=== PATIENT | female | born 1960 | race African-American/Black ===

== ENCOUNTER 2022-07-03 11:50 | Emergency (ER) | payer MEDICARE ==
[2022-07-03 13:02] LABS: ALT (SGPT) 15 U/L (8-55); AST (SGOT) 24 U/L (5-34); Albumin 4.2 g/dL (3.5-5.0); Alkaline Phosphatase 120 U/L (40-110); Anion Gap 14 mmol/L (10-20); BUN (Urea Nitrogen) 25 mg/dL (9.8-20.1); Bilirubin, Total 0.5 mg/dL (0.2-1.2); Calc. Creatinine Clearance 0 mL/min (70-130); Calcium 9.9 mg/dL (7.8-10.44); Carbon Dioxide 26 mmol/L (22-29); Chloride 104 mmol/L (98-107); Estimated GFR 28; Globulin 2.9 g/dL (2.4-3.5); Glucose 200 mg/dL (70-105); Potassium 4.8 mmol/L (3.5-5.1); Protein, Total 7.1 g/dL (6.0-8.3); Sodium 139 mmol/L (136-145)
[2022-07-03 13:23] LABS: #Eosinphils 0.1 10x3/uL (0.0-0.5); #Monocytes 0.4 10x3/uL (0.0-1.1); #Neutrophils 4.6 10x3/uL (1.5-8.4); %Basophils 0.3 % (0.0-2.0); %Eosinophils 1.5 % (0.0-6.0); %Lymphocytes 27.8 % (18.0-47.0); %Monocytes 6.2 % (0.0-10.0); %Neutrophils 63.9 % (40.0-75.0); Mean Corpuscular HGB CONC 32.6 g/dL (32.0-36.0); Mean Corpuscular Hemoglobin 27.2 pg (27.0-33.0); Mean Corpuscular Volume 83.2 fl (81.6-98.3); Mean Platelet Volume 11.6 fl (7.4-10.4); Platelet Count 193 10x3/uL (150-450); RBC Distribution Width 14.2 % (11.5-14.5); Red Blood Cell (RBC) Count 4.05 10x6/uL (3.90-5.03); White Blood Cell (WBC) Count 7.2 10x3/uL (3.5-10.5)
[2022-07-03 14:19] LABS: Large Platelets SLIGHT; Platelet Clumps MODERATE; Platelet Morphology Comment Appears Adequate
[2022-07-03 14:21] LABS: RBC Morphology Normal
== END 2022-07-03 15:00 | disposition home or self-care (01) ==
LOC: CSHERS 11:50
DX: S43.421A Sprain of right rotator cuff capsule, initial encounter (principal); K21.9 Gastro-esophageal reflux disease without esophagitis; E78.00 Pure hypercholesterolemia, unspecified; I25.10 Atherosclerotic heart disease of native coronary artery without angina pectoris; E11.9 Type 2 diabetes mellitus without complications; Z86.73 Personal history of transient ischemic attack (TIA), and cerebral infarction without residual deficits; W19.XXXA Unspecified fall, initial encounter
CPT/HCPCS: 70450; 80053; 85025; 93005

== ENCOUNTER 2022-11-10 13:54 | Outpatient (CLI) | payer MEDICARE | END 2022-11-10 13:55 | disposition home or self-care (01) | LOC: CSHULT 13:54 | PROVIDERS: ATTEND Nurse Practitioner Family | DX: I83.11 Varicose veins of right lower extremity with inflammation (principal); I83.12 Varicose veins of left lower extremity with inflammation; R22.42 Localized swelling, mass and lump, left lower limb; M79.9 Soft tissue disorder, unspecified | CPT/HCPCS: 76882; 93923; 93970 ==

== ENCOUNTER 2023-11-26 13:29 | Emergency (ER) | payer MEDICARE ==
[2023-11-26 15:41] LABS: #Basophils 0.02 10x3/uL (0.0-0.2); #Eosinphils 0.15 10x3/uL (0.0-0.5); #Monocytes 0.43 10x3/uL (0.0-1.1); #Neutrophils 3.36 10x3/uL (1.5-8.4); %Basophils 0.3 % (0.0-2.0); %Eosinophils 2.2 % (0.0-6.0); %Lymphocytes 41.3 % (18.0-47.0); %Monocytes 6.4 % (0.0-10.0); %Neutrophils 49.7 % (40.0-75.0); Hematocrit 30.1 % (34.9-44.5); Mean Corpuscular HGB CONC 33.2 g/dL (32.0-36.0); Mean Corpuscular Hemoglobin 27.5 pg (27.0-33.0); Mean Corpuscular Volume 82.7 fL (81.6-98.3); Mean Platelet Volume 10.6 fL (7.4-10.4); Platelet Count 203 10x3/uL (150-450); Red Blood Cell (RBC) Count 3.64 10x6/uL (3.90-5.03); White Blood Cell (WBC) Count 6.8 10x3/uL (3.5-10.5)
[2023-11-26 15:49] LABS: ALT (SGPT) 19 U/L (8-55); AST (SGOT) 28 U/L (5-34); Albumin 3.9 g/dL (3.4-4.8); Alkaline Phosphatase 122 U/L (40-110); Anion Gap 12 mmol/L (10-20); BUN (Urea Nitrogen) 22 mg/dL (9.8-20.1); Bilirubin, Total 0.5 mg/dL (0.2-1.2); Calc. Creatinine Clearance 0 mL/min (70-130); Calcium 10.1 mg/dL (7.8-10.44); Carbon Dioxide 22 mmol/L (23-31); Chloride 112 mmol/L (98-107); Estimated GFR 47; Globulin 2.6 g/dL (2.4-3.5); Glucose 142 mg/dL (80-115); Potassium 4.7 mmol/L (3.5-5.1); Protein, Total 6.5 g/dL (5.8-8.1); Sodium 141 mmol/L (136-145)
[2023-11-26 15:57] LABS: Troponin I Less than 0.010 ng/mL (< 0.028)
[2023-11-26 17:35] LABS: Bilirubin Neg (Negative); Blood, Urine Negative (Negative); Clarity Clear (Clear); Glucose, Urine (Dipstick) Normal (Negative); Ketone, Urine Negative (Negative); Leukocyte Negative (Negative); Nitrite Negative (Negative); Protein, Urine (Dipstick) 15 mg/dl (Neg-Trace); Urobilinogen Normal mg/dL (Less than 2); pH, Urine 6.5 (5.0-9.0)
[2023-11-26 17:46] LABS: Bacteria/HPF Rare-Few HPF (None Seen); CAUTI Indications for Culture Alt mental st,lethar; RBC/HPF 0-3 HPF (0-3); Squamous Epithelial 0-3 HPF (0-3); WBC/HPF 0-3 HPF (0-3)
[2023-11-26 17:47] LABS: Urine Culture Reflex No No
== END 2023-11-26 17:38 | disposition home or self-care (01) ==
LOC: CSHERS 13:29
DX: S06.0X0A Concussion without loss of consciousness, initial encounter (principal); E11.9 Type 2 diabetes mellitus without complications; E78.5 Hyperlipidemia, unspecified; Z79.899 Other long term (current) drug therapy; Z79.4 Long term (current) use of insulin; W19.XXXA Unspecified fall, initial encounter
CPT/HCPCS: 36415; 70450; 71045; 80053; 81001; 84484; 85025; 93005

== ENCOUNTER 2025-01-10 16:36 | Emergency (ER) | payer MEDICARE ==
[2025-01-10] MEDS ORDERED: Gabapentin 300 MG CAP ONE (17:23)
== END 2025-01-10 17:40 | disposition home or self-care (01) ==
LOC: CSHERS 16:36
DX: M25.562 Pain in left knee (principal); I25.10 Atherosclerotic heart disease of native coronary artery without angina pectoris; E78.5 Hyperlipidemia, unspecified; E11.9 Type 2 diabetes mellitus without complications; Z86.73 Personal history of transient ischemic attack (TIA), and cerebral infarction without residual deficits; W19.XXXA Unspecified fall, initial encounter
CPT/HCPCS: 99283

== ENCOUNTER 2025-01-23 13:23 | Inpatient (IN) | payer MEDICARE ==
[~2025-01-23 13:23] MED LIST: Iopamidol 370 76% 100 ML VIAL ONE
[2025-01-23 14:01] LABS: #Basophils Less than 0.03 10x3/uL (0.0-0.2); #Eosinophils 0.17 10x3/uL (0.0-0.5); #Monocytes 0.66 10x3/uL (0.0-1.1); #Neutrophils 4.06 10x3/uL (1.5-8.4); %Basophils 0.3 % (0.0-2.0); %Eosinophils 2.6 % (0.0-6.0); %Lymphocytes 24.2 % (18.0-47.0); %Monocytes 10.2 % (0.0-10.0); %Neutrophils 62.5 % (40.0-75.0); Hematocrit 31.9 % (34.9-44.5); Hemoglobin 10.1 g/dL (12.0-15.5); Mean Corpuscular Hemoglobin 27.1 pg (27.0-33.0); Mean Corpuscular Volume 85.5 fL (81.6-98.3); Platelet Count 221 10x3/uL (150-450); Red Blood Cell (RBC) Count 3.73 10x6/uL (3.90-5.03); White Blood Cell (WBC) Count 6.49 10x3/uL (3.5-10.5)
[2025-01-23 14:28] LABS: ALT (SGPT) 13 U/L (Less than 34); AST (SGOT) 23 U/L (11-34); Albumin 3.9 g/dL (3.1-4.5); Alkaline Phosphatase 167 U/L (40-110); Anion Gap 13 mmol/L (10-20); BUN (Urea Nitrogen) 26 mg/dL (9.8-20.1); Bilirubin, Total 0.6 mg/dL (0.3-1.2); Calc. Creatinine Clearance 0 mL/min (70-130); Calcium 11.2 mg/dL (7.8-10.44); Carbon Dioxide 26 mmol/L (23-31); Chloride 105 mmol/L (98-107); Globulin 2.9 g/dL (2.4-3.5); Glucose 181 mg/dL (80-115); Potassium 5.3 mmol/L (3.5-5.1); Sodium 139 mmol/L (136-145)
[2025-01-23 14:34] LABS: Troponin I 0.036 ng/mL (< 0.028)
[2025-01-23] MEDS ORDERED: Furosemide 40 MG (4 mL) VIAL ONE (17:14)
[2025-01-23] MEDS ORDERED: Aspirin Chewable 81 MG TAB ONE (17:14)
[2025-01-23] MEDS ORDERED: Nitroglycerin 0.4 MG TAB (25 Tab Bottle) SL PRN (18:12)
[2025-01-23 18:15] LABS: Troponin I 0.029 ng/mL (< 0.028)
[2025-01-23] MEDS ORDERED: Dextrose 50% Abboject 50 ML SYRINGE SLOW IVP PRN (18:18)
[2025-01-23] MEDS ORDERED: Glucagon 1 MG/ML KIT IM PRN (18:18)
[2025-01-23] MEDS: TICAGRELOR 90 MG TABLET PO SCH (20:55)
[2025-01-24 04:42] LABS: ALT (SGPT) 9 U/L (Less than 34); AST (SGOT) 19 U/L (11-34); Albumin 3.4 g/dL (3.1-4.5); Alkaline Phosphatase 134 U/L (40-110); Anion Gap 14 mmol/L (10-20); BUN (Urea Nitrogen) 27 mg/dL (9.8-20.1); Bilirubin, Total 0.4 mg/dL (0.3-1.2); Calc. Creatinine Clearance 57 mL/min (70-130); Calcium 10.8 mg/dL (7.8-10.44); Carbon Dioxide 22 mmol/L (23-31); Chloride 106 mmol/L (98-107); Globulin 3.2 g/dL (2.4-3.5); Glucose 153 mg/dL (80-115); Potassium 4.4 mmol/L (3.5-5.1); Sodium 138 mmol/L (136-145)
[2025-01-24] MEDS: Aspirin Chewable 81 MG TAB PO SCH (09:50)
[2025-01-24] MEDS: Benzonatate 100 MG CAP PO PRN (09:50)
[2025-01-24] MEDS: Carvedilol 3.125 MG TAB PO SCH (16:39)
[2025-01-24 17:28] LABS: Glucose, Urine (Dipstick) 100 mg/dL (Negative); Leukocyte Negative (Negative); Protein, Urine (Dipstick) 30 mg/dl (Neg-Trace); Specific Gravity, Urine 1.015 (1.005-1.030)
[2025-01-24 17:51] LABS: Bacteria/HPF 3+ HPF (None Seen); RBC/HPF 0-3 HPF (0-3)
[2025-01-24] MEDS ORDERED: Metoprolol Succinate XL 25 MG ER.TAB PO SCH (21:00)
[2025-01-24] MEDS ORDERED: Sacubitril 49 MG/Valsartan 51 MG TABLET PO SCH (21:00)
[2025-01-24] MEDS ORDERED: Metoprolol Succinate XL 50 MG ER.TAB PO SCH (21:00)
[2025-01-24] MEDS: Sertraline 100 MG TAB PO SCH (21:09)
[2025-01-24] MEDS: Multivit, Therapeutic 1 TAB PO SCH (21:09)
[2025-01-25 04:57] LABS: #Basophils Less than 0.03 10x3/uL (0.0-0.2); #Eosinophils 0.22 10x3/uL (0.0-0.5); #Monocytes 0.56 10x3/uL (0.0-1.1); #Neutrophils 2.71 10x3/uL (1.5-8.4); %Basophils 0.2 % (0.0-2.0); %Eosinophils 4.2 % (0.0-6.0); %Lymphocytes 32.2 % (18.0-47.0); %Monocytes 10.8 % (0.0-10.0); %Neutrophils 52.4 % (40.0-75.0); Hematocrit 27.7 % (34.9-44.5); Hemoglobin 8.9 g/dL (12.0-15.5); Mean Corpuscular Hemoglobin 27.8 pg (27.0-33.0); Mean Corpuscular Volume 86.6 fL (81.6-98.3); Platelet Count 176 10x3/uL (150-450); Red Blood Cell (RBC) Count 3.20 10x6/uL (3.90-5.03); White Blood Cell (WBC) Count 5.18 10x3/uL (3.5-10.5)
[2025-01-25 05:13] LABS: Anion Gap 9 mmol/L (10-20); BUN (Urea Nitrogen) 26 mg/dL (9.8-20.1); Calc. Creatinine Clearance 69 mL/min (70-130); Calcium 10.2 mg/dL (7.8-10.44); Carbon Dioxide 25 mmol/L (23-31); Chloride 107 mmol/L (98-107); Glucose 193 mg/dL (80-115); Magnesium 1.6 mg/dL (1.6-2.6); Potassium 4.4 mmol/L (3.5-5.1); Sodium 137 mmol/L (136-145)
[2025-01-25] MEDS: Famotidine 20 MG TAB PO SCH (08:28)
[2025-01-25] MEDS ORDERED: Spironolactone 25 MG TAB PO SCH (09:00)
[2025-01-25] MEDS ORDERED: Furosemide 20 MG TAB PO SCH (10:30)
[2025-01-25] MEDS: Spironolactone 25 MG TAB PO SCH (11:35)
[2025-01-25] MEDS: Furosemide 40 MG TAB PO SCH (11:35)
[2025-01-25] MEDS: cefTRIAXone\\ROCEPHIN 1 GM in Sodium Chloride 0.9% 100 ML IVPB SCH (12:52)
[2025-01-25] MEDS: Sacubitril 49 MG/Valsartan 51 MG TABLET PO SCH (20:34)
[2025-01-26 04:31] LABS: Hematocrit 27.7 % (34.9-44.5); Hemoglobin 9.0 g/dL (12.0-15.5)
[2025-01-26 04:54] LABS: Anion Gap 14 mmol/L (10-20); BUN (Urea Nitrogen) 28 mg/dL (9.8-20.1); Calc. Creatinine Clearance 61 mL/min (70-130); Calcium 10.3 mg/dL (7.8-10.44); Carbon Dioxide 23 mmol/L (23-31); Chloride 104 mmol/L (98-107); Glucose 226 mg/dL (80-115); Potassium 4.2 mmol/L (3.5-5.1); Sodium 137 mmol/L (136-145)
[2025-01-26 06:07] VITALS: BMI 29.2
[2025-01-26] MEDS: Furosemide 40 MG TAB PO SCH (08:14)
[2025-01-26] MEDS: Spironolactone 25 MG TAB PO SCH (08:14)
[2025-01-26 12:35] VITALS: BP 107/69; TEMP 98.4
[2025-01-27] MEDS ORDERED: Furosemide 20 MG TAB PO SCH (07:30)
== END 2025-01-26 13:45 | disposition home or self-care (01) | DRG 291 ==
LOC: CSHERS 13:23 → CSHTELE 17:15 → OBSVTOIN 01-25 10:02
PROVIDERS: ADMIT Internal Medicine; ATTEND Family Medicine
DX: I13.0 Hypertensive heart and chronic kidney disease with heart failure and stage 1 through stage 4 chronic kidney disease, or unspecified chronic kidney disease (principal); I50.43 Acute on chronic combined systolic (congestive) and diastolic (congestive) heart failure; J96.01 Acute respiratory failure with hypoxia; I69.951 Hemiplegia and hemiparesis following unspecified cerebrovascular disease affecting right dominant side; N17.9 Acute kidney failure, unspecified; N30.00 Acute cystitis without hematuria; E87.5 Hyperkalemia; I42.0 Dilated cardiomyopathy; I95.1 Orthostatic hypotension; I25.10 Atherosclerotic heart disease of native coronary artery without angina pectoris; E11.43 Type 2 diabetes mellitus with diabetic autonomic (poly)neuropathy; K31.84 Gastroparesis; F41.9 Anxiety disorder, unspecified; S86.812A Strain of other muscle(s) and tendon(s) at lower leg level, left leg, initial encounter; R05.9 Cough, unspecified; E83.52 Hypercalcemia; E11.22 Type 2 diabetes mellitus with diabetic chronic kidney disease; N18.30 Chronic kidney disease, stage 3 unspecified; K21.9 Gastro-esophageal reflux disease without esophagitis; E66.9 Obesity, unspecified; R79.89 Other specified abnormal findings of blood chemistry; D63.1 Anemia in chronic kidney disease; E78.5 Hyperlipidemia, unspecified; G47.33 Obstructive sleep apnea (adult) (pediatric); I77.9 Disorder of arteries and arterioles, unspecified; B96.20 Unspecified Escherichia coli [E. coli] as the cause of diseases classified elsewhere; I08.1 Rheumatic disorders of both mitral and tricuspid valves; W19.XXXA Unspecified fall, initial encounter; R07.89 Other chest pain; S80.12XA Contusion of left lower leg, initial encounter; Z95.5 Presence of coronary angioplasty implant and graft; Z95.810 Presence of automatic (implantable) cardiac defibrillator; Z88.5 Allergy status to narcotic agent; Z99.89 Dependence on other enabling machines and devices; Z91.011 Allergy to milk products; Z98.890 Other specified postprocedural states; Z90.49 Acquired absence of other specified parts of digestive tract; Z90.710 Acquired absence of both cervix and uterus; Z95.828 Presence of other vascular implants and grafts; Z79.899 Other long term (current) drug therapy; Z79.4 Long term (current) use of insulin; Z68.30 Body mass index [BMI] 30.0-30.9, adult; Z79.82 Long term (current) use of aspirin
CPT/HCPCS: 36415; 36416; 71045; 71275; 80048; 80053; 81001; 83735; 83880; 84484; 85014; 85018; 85025; 87077; 87086; 87186; 87428; 93005; 93306; 96374; G0378; J0696; J1815; J1940; J7030; Q9967

== ENCOUNTER 2025-05-07 20:07 | Emergency (ER) | payer MEDICARE ==
[2025-05-07] MEDS ORDERED: Acetaminophen 500 MG TAB ONE (20:38)
== END 2025-05-07 22:02 | disposition home or self-care (01) ==
LOC: CSHERS 20:07
DX: S22.41XA Multiple fractures of ribs, right side, initial encounter for closed fracture (principal); S00.03XA Contusion of scalp, initial encounter; E11.9 Type 2 diabetes mellitus without complications; E78.5 Hyperlipidemia, unspecified; I25.10 Atherosclerotic heart disease of native coronary artery without angina pectoris; I50.9 Heart failure, unspecified; I25.2 Old myocardial infarction; Z86.73 Personal history of transient ischemic attack (TIA), and cerebral infarction without residual deficits; Z79.899 Other long term (current) drug therapy; W08.XXXA Fall from other furniture, initial encounter
CPT/HCPCS: 70450; 71250; 72125; 74177